=== PATIENT | female | born 1990 | race Caucasian/White ===

== ENCOUNTER 2019-09-03 08:51 | Emergency (ER) | payer OTHER ==
[2019-09-03 09:16] VITALS: BP 110/70
[2019-09-03 09:21] LABS: Influenza A Molecular NEGATIVE (Negative); Influenza B Molecular NEGATIVE (Negative)
--- NOTE | 2019-09-03 09:43 | UC ---
General HPI - HPI Summary HPI Summary: Patient is 29 year old female , who present today to the urgent care for evaluation of flu. She is here with her son, 4 yr old who tested +flu A, patient is 20 weeks and OB recommends she be assessed. She denies having any symptoms and feels perfectly fine. - History of Current Complaint Chief Complaint: UCRespiratory Stated Complaint: FLU A EXPOSURE Time Seen by Provider: 09/03/19 09:24 Hx Obtained From: Patient Hx Last Menstrual Period: 03/2019 Pain Intensity: 0 - Allergy/Home Medications Allergies/Adverse Reactions: Allergies Allergy/AdvReac Type Severity Reaction Status Date / Time No Known Allergies Allergy Verified 09/03/19 09:03 Home Medications: Home Medications Aspirin [Ecotrin Low Strength] 81 mg PO DAILY 09/03/19 [History Confirmed ] [id number]/Iron/Folic Acid/Dha [Prena1 Carmelita Softgel] 1 mg PO DAILY 09/03/19 [ History Confirmed 09/03/19] PMH/Surg Hx/FS Hx/Imm Hx - Additional Past Medical History Additional PMH: Past Medical History : None Past Surgical History: Compartment syndrome of the left leg, fibroid surgery, right knee surgery Family History : non contributory Social History : Rare alcohol, non smoker, no drug use. Previously Healthy: Yes - Surgical History Surgical History: Yes Surgery Procedure, Year, and Place: COMPARTMENT SYNDROME LEFT LEG. FIBROID REMOVAL. RIGHT KNEE SURGERY MAY 2017 - Family History Known Family History: Positive: None, Non-Contributory - Social History Alcohol Use: Rare Substance Use Type: None Smoking Status (MU): Never Smoked Tobacco Have You Smoked in the Last Year: No Review of Systems All Other Systems Reviewed And Are Negative: Yes Constitutional: Positive: Negative Skin: Positive: Negative Eyes: Positive: Negative ENT: Positive: Negative Respiratory: Positive: Negative Cardiovascular: Positive: Negative Gastrointestinal: Positive: Negative Genitourinary: Positive: Negative Motor: Positive: Negative Neurovascular: Positive: Negative Musculoskeletal: Positive: Negative Neurological: Positive: Negative Psychological: Positive: Negative Is Patient Immunocompromised?: No Physical Exam - Summary Physical Exam Summary: Physical Exam: Const: Appears well. No signs of apparent distress present. Alert and oriented x 3. Musculo: Walks with a normal gait. Head/Face: Atraumatic, normocephalic on inspection. Eyes: EOMI and PERRLA in both eyes. Conjunctivae clear. No discharge noted ENT: Hearing normal Respiratory: Respirations are unlabored. Lungs clear to auscultation bilaterally, no wheezing , rhonchi or rales noted . CVS: Regular rate and Rhythm, S1S2 normal , no murmurs identified. Extremities: Peripheral circulation is grossly normal. Pulses 2+ Abdomen : Soft non tender , nondistended , Bowel sounds present . No guarding , rebound tenderness or rigidity noted. Skin: No lesions or rash located on the upper extremities or on the lower extremities. Neuro: Cranial nerves II to XII intact, motor and sensory intact. DTR Intact bilaterally. Mood is normal. Affect is normal. Triage Information Reviewed: Yes Vital Signs: Initial Vital Signs Temp 98.2 F 09/03/19 09:10 Pulse 79 09/03/19 09:10 Resp 18 09/03/19 09:10 BP 110/70 09/03/19 09:10 Pulse Ox 100 09/03/19 09:10 Vital Signs Reviewed: Yes Course/Dx - Course Course Of Treatment: Flu tested neg. Plan to put her on preventative dose of tamiflu. - Diagnoses Provider Diagnosis: Exposure to influenza Discharge ED - Sign-Out/Discharge Documenting (check all that apply): Patient Departure All imaging exams completed and their final reports reviewed: No Studies - Discharge Plan Condition: Stable Disposition: HOME Prescriptions: Oseltamivir CAP* [Tamiflu CAP*] 75 mg PO DAILY 10 Days #10 cap Patient Education Materials: Influenza (ED) Referrals: No Primary Care Phys,NOPCP [Primary Care Provider] - Additional Instructions: Please start taking the medication as prescribed to the pharmacy . Follow up with your [facility] in a week Return to Urgent care / ER if symptoms get worse. - Billing Disposition and Condition Condition: STABLE Disposition: Home
== END 2019-09-03 09:51 | disposition home or self-care (01) ==
LOC: UCCORT 08:51
DX: Z20.828 Contact with and (suspected) exposure to other viral communicable diseases (principal); Z34.92 Encounter for supervision of normal pregnancy, unspecified, second trimester; Z3A.20 20 weeks gestation of pregnancy
CPT/HCPCS: 99212; G0463